=== PATIENT | female | born 1990 | race Two or more races ===

== ENCOUNTER 2019-04-10 23:46 | Inpatient (IN) | payer MEDICAID, OTHER ==
[~2019-04-10] VITALS: Ht 152.4 cm; Wt 58.1 kg
[~2019-04-10 23:46] MED LIST: HALO.5 PO; HALO5TAB2 PO; VALP250 PO
[2019-04-11 00:48] LABS: BASOPHILS % (AUTO) 0.3 % (0.0-2.0); EOSINOPHILS % (AUTO) 0.9 % (1.0-6.0); HEMATOCRIT 40.9 % (36-46); HEMOGLOBIN 13.5 g/dL (12.0-16.0); LYMPHOCYTES # (AUTO) 2.5 K/uL (1.0-4.8); LYMPHOCYTES % (AUTO) 34.1 % (22.0-44.0); MEAN CORPUSCULAR HEMOGLOBIN 30.3 pg (26.0-34.0); MEAN CORPUSCULAR VOLUME 92 fL (80-100); MONOCYTES # (AUTO) 0.4 K/uL (0.1-1.0); MONOCYTES % (AUTO) 5.8 % (2.0-9.0); NEUTROPHILS # (AUTO) 4.2 K/uL (1.8-7.7); NEUTROPHILS % (AUTO) 58.9 % (40.0-70.0); PLATELET COUNT (AUTO) 196 K/uL (150-450); RED BLOOD CELL COUNT(AUTO) 4.47 MIL/uL (4.00-5.20); RED CELL DISTRIBUTION WIDTH 13.2 % (11.5-14.5)
[2019-04-11 00:54] LABS: AMPHET/METH SCREEN,URINE NEGATIVE (NEGATIVE); BARBITURATE SCREEN, URINE NEGATIVE (NEGATIVE); BENZODIAZEPINES SCREEN,URINE NEGATIVE (NEGATIVE); CANNABINOID SCREEN,URINE NEGATIVE (NEGATIVE); COCAINE SCREEN,URINE NEGATIVE (NEGATIVE); METHADONE SCREEN, URINE NEGATIVE (NEGATIVE); OPIATE SCREEN,URINE NEGATIVE (NEGATIVE)
[2019-04-11 00:55] LABS: PHENCYCLIDINE SCREEN,URINE NEGATIVE (NEGATIVE)
[2019-04-11 00:55] LABS: ANION GAP 6 mmol/L (8-16); CALCIUM, TOTAL 8.9 mg/dL (8.8-10.5); CARBON DIOXIDE 28 mmol/L (22-29); CHLORIDE 104 mmol/L (98-107); CREATININE 0.93 mg/dL (0.60-1.30); GLOMERULAR FILTR. RATE CALC > 60 mL/min (>60); GLUCOSE,RANDOM 105 mg/dL (70-110); POTASSIUM 3.6 mmol/L (3.5-5.1); SODIUM SERUM 138 mmol/L (136-145); UREA NITROGEN, BLOOD 8 mg/dL (7-18)
[2019-04-11 01:07] LABS: ALANINE AMINOTRANSFERASE 23 U/L (12-78); ALBUMIN 4.4 g/dL (3.4-5.0); ALKALINE PHOSPHATASE 52 U/L (46-116); ASPARTATE AMINOTRANSFERASE 12 U/L (15-37); BILIRUBIN,TOTAL 0.6 mg/dL (0.1-1.0); HCG,QUANTITATIVE < 1 mIU/mL (0-6); TOTAL PROTEIN, SERUM 8.2 g/dL (6.4-8.2)
[2019-04-11] MEDS ORDERED: QUEtiapine FUMARATE 25 MG TABLET PO ONE (01:15)
[2019-04-11] MEDS ORDERED: ACETAMINOPHEN 325 MG TABLET PO ONE (01:15)
[2019-04-11] MEDS: ZOLPIDEM TARTRATE 10 MG TABLET PO PRN ×2 (02:35→21:10)
[2019-04-11] MEDS: HALOPERIDOL 5 MG TABLET PO PRN ×2 (02:35→09:01)
[2019-04-11 03:29] LABS: APPEARANCE,URINE CLEAR (CLEAR); BILIRUBIN,URINE NEGATIVE (NEGATIVE); GLUCOSE, URINE (UA) NEGATIVE (NEGATIVE); KETONES,URINE NEGATIVE (NEGATIVE); LEUKOCYTE ESTERASE ,URINE SMALL (NEGATIVE); NITRATE,URINE NEGATIVE (NEGATIVE); OCCULT BLOOD,URINE LARGE (NEGATIVE); PROTEIN,URINE NEGATIVE (NEGATIVE); UROBILINOGEN,URINE 0.2 mg/dL (<=1.0)
[2019-04-11 03:30] LABS: BACTERIA,URINE None Seen /HPF (None Seen); RBC,URINE 51-100 /HPF (0-2)
[2019-04-11 03:31] LABS: SQUAMOUS EPITHELIAL CELL,UR Few /LPF (None Seen)
[2019-04-11] MEDS: LORazepam 2 MG TABLET PO PRN ×2 (09:00→17:13)
[2019-04-11] MEDS ORDERED: ALBUTEROL SULFATE HFA 90 MCG/PUFF 8 GM INHALER IH PRN (10:45)
[2019-04-11] MEDS ORDERED: NICOTINE 14 MG/24 HOUR PATCH TD PRN (10:45)
[2019-04-11] MEDS ORDERED: PETROLATUM,WHITE 28 GM JELLY TP PRN (10:45)
[2019-04-11] MEDS ORDERED: ONDANSETRON HCL 4 MG TABLET PO PRN (10:45)
[2019-04-11] MEDS ORDERED: ACETAMINOPHEN 325 MG TABLET PO PRN (10:45)
[2019-04-11] MEDS ORDERED: CloNIDine HCL 0.1 MG TABLET PO PRN (10:45)
[2019-04-11] MEDS ORDERED: IBUPROFEN 400 MG TABLET PO PRN (10:45)
[2019-04-11] MEDS ORDERED: GuaiFENesin/D-METHORPHAN [SUGAR-FREE] 200-20MG/10 ML SYRUP UDCUP PO PRN (10:45)
[2019-04-11] MEDS ORDERED: LOPERAMIDE HCL 2 MG CAPSULE PO PRN (10:45)
[2019-04-11] MEDS ORDERED: MAGNESIUM HYDROXIDE SUSPENSION 30 ML UDCUP PO PRN (10:45)
[2019-04-11] MEDS ORDERED: DOCUSATE SODIUM 100 MG CAPSULE PO PRN (10:45)
[2019-04-11] MEDS: CEPHALEXIN MONOHYDRATE 250 MG CAPSULE PO SCH ×2 (13:09→17:13)
[2019-04-11 16:25] VITALS: BP 114/60
[2019-04-11] MEDS ORDERED: VALP250C3 PO (19:07)
[2019-04-11] MEDS: HALOPERIDOL 5 MG TABLET PO SCH (21:10)
[2019-04-11] MEDS: DIVALPROEX SODIUM 500 MG DR TABLET PO SCH (21:10)
[2019-04-12] MEDS: LORazepam 2 MG TABLET PO PRN ×2 (00:34→12:29)
[2019-04-12 01:01] VITALS: BP 121/76
[2019-04-12] MEDS: HALOPERIDOL 5 MG TABLET PO SCH ×2 (08:01→21:28)
[2019-04-12] MEDS: DIVALPROEX SODIUM 500 MG DR TABLET PO SCH ×2 (08:01→21:28)
[2019-04-12] MEDS: CEPHALEXIN MONOHYDRATE 250 MG CAPSULE PO SCH ×3 (08:01→16:07)
[2019-04-12 08:04] VITALS: BP 111/66
[2019-04-12 08:11] LABS: CHOL/HDL RATIO 3.5 (3.9-5.7)
[2019-04-12] MEDS ORDERED: BENZTROPINE MESYLATE 1 MG/ML 2 ML VIAL IM ONE (12:45)
[2019-04-12 16:22] VITALS: BP 110/65
[2019-04-12] MEDS: BENZTROPINE MESYLATE 1 MG TABLET PO SCH (21:28)
[2019-04-12] MEDS: ZOLPIDEM TARTRATE 10 MG TABLET PO PRN (22:40)
[2019-04-13 02:56] VITALS: BP 115/65
[2019-04-13] MEDS: HALOPERIDOL 5 MG TABLET PO SCH ×2 (08:09→20:31)
[2019-04-13] MEDS: CEPHALEXIN MONOHYDRATE 250 MG CAPSULE PO SCH ×3 (08:09→16:37)
[2019-04-13] MEDS: SULFAMETHOX/TRIMETH DS 800-160 MG/TABLET PO SCH ×2 (08:09→16:36)
[2019-04-13] MEDS: DIVALPROEX SODIUM 500 MG DR TABLET PO SCH ×2 (08:09→20:31)
[2019-04-13] MEDS: BENZTROPINE MESYLATE 1 MG TABLET PO SCH ×2 (08:09→16:37)
[2019-04-13 08:19] VITALS: BP 102/66
[2019-04-13] MEDS: MAG HYDROX/AL HYDROX/SIMETH ES 30 ML SUSPENSION UDCUP PO PRN ×2 (08:52→18:45)
[2019-04-13 17:15] VITALS: BP 104/63
[2019-04-13] MEDS: ZOLPIDEM TARTRATE 10 MG TABLET PO PRN (23:01)
[2019-04-14 04:58] VITALS: BP 102/63
[2019-04-14 08:03] VITALS: BP 121/73
[2019-04-14] MEDS: HALOPERIDOL 5 MG TABLET PO SCH (08:44)
[2019-04-14] MEDS: DIVALPROEX SODIUM 500 MG DR TABLET PO SCH ×2 (08:44→20:15)
[2019-04-14] MEDS: BENZTROPINE MESYLATE 1 MG TABLET PO SCH ×2 (08:44→16:00)
[2019-04-14] MEDS: CEPHALEXIN MONOHYDRATE 250 MG CAPSULE PO SCH ×3 (08:44→16:00)
[2019-04-14] MEDS: SULFAMETHOX/TRIMETH DS 800-160 MG/TABLET PO SCH ×2 (08:44→16:00)
[2019-04-14 16:09] VITALS: BP 108/52
[2019-04-14] MEDS: HALOPERIDOL 10 MG TABLET PO SCH (20:15)
[2019-04-14] MEDS: ZOLPIDEM TARTRATE 10 MG TABLET PO PRN (21:38)
[2019-04-15 03:54] VITALS: BP 106/68
[2019-04-15 08:04] VITALS: BP 113/62
[2019-04-15] MEDS: HALOPERIDOL 10 MG TABLET PO SCH (08:12)
[2019-04-15] MEDS: BENZTROPINE MESYLATE 1 MG TABLET PO SCH (08:12)
[2019-04-15] MEDS: DIVALPROEX SODIUM 500 MG DR TABLET PO SCH (08:12)
[2019-04-15] MEDS: SULFAMETHOX/TRIMETH DS 800-160 MG/TABLET PO SCH (08:12)
[2019-04-15] MEDS: CEPHALEXIN MONOHYDRATE 250 MG CAPSULE PO SCH ×2 (08:12→12:58)
[2019-04-15] MEDS ORDERED: BENZ1TAB10 PO (11:28)
[2019-04-15] MEDS ORDERED: DIVA-78 PO (11:28)
[2019-04-15] MEDS ORDERED: HALO10 PO (11:29)
[2019-04-15] MEDS ORDERED: BACTDSB PO (12:26)
[2019-04-15] MEDS ORDERED: CEPH250 PO (12:26)
== END 2019-04-15 15:00 | disposition home or self-care (01) | DRG 750 ==
LOC: EMS 23:46 → B3A 04-11 08:27
PROVIDERS: ADMIT Psychiatry & Neurology Child & Adolescent Psychiatry; ATTEND Psychiatry & Neurology Child & Adolescent Psychiatry
DX: F20.0 Paranoid schizophrenia (principal); E78.5 Hyperlipidemia, unspecified; F84.0 Autistic disorder; N39.0 Urinary tract infection, site not specified; R31.9 Hematuria, unspecified; Z79.899 Other long term (current) drug therapy; F41.9 Anxiety disorder, unspecified
CPT/HCPCS: 87086; G0480; J0515